=== PATIENT | male | born 1985 | race Caucasian/White ===

== ENCOUNTER 2020-07-02 21:39 | Emergency (ER) | payer OTHER ==
[2020-07-02] MEDS ORDERED: HYDROcodone/APAP 5-325MG 1 EACH TAB PO STA (21:58)
--- NOTE | 2020-07-02 22:29 | XR ---
EXAMINATION TYPE: XR ankle complete LT DATE OF EXAM: 07/02/2020 COMPARISON: NONE HISTORY: Pain and swelling TECHNIQUE: 3 views FINDINGS: There is soft tissue swelling over the lateral malleolus. Ankle mortise is anatomic. I see no fracture nor dislocation. IMPRESSION: Lateral soft tissue swelling. No fracture seen.
--- NOTE | 2020-07-02 22:35 | ED ---
Lower Extremity Injury HPI - General Chief Complaint: Extremity Injury, Lower Stated Complaint: L Ankle Injury Time Seen by Provider: 07/02/20 21:46 Source: patient Mode of arrival: wheelchair Limitations: no limitations - History of Present Illness Initial Comments: 35-year-old male presenting today for chief complaint of left ankle pain. Patient states that he left his house to go back to his car to get a change of clothes when he stepped on a loose piece of sidewalk and this caused him to invert his left ankle. He states he merely noticed pain swelling and felt a pop. Patient denies any injury to the knee had head neck back abdomen or upper extremities. He denies any loss of sensation weakness coolness or pallor of the extremity he states he immediately removed his boot so that it did not dislocate his foot. He denies any lacerations or abrasions. - Related Data Home Medications Medication Instructions Recorded Confirmed No Known Home Medications 10/04/15 10/04/15 Allergies Allergy/AdvReac Type Severity Reaction Status Date / Time chlorhexidine Allergy Unknown Verified 07/02/20 21:45 Review of Systems ROS Statement: Those systems with pertinent positive or pertinent negative responses have been documented in the HPI. ROS Other: All systems not noted in ROS Statement are negative. Past Medical History Past Medical History: No Reported History History of Any Multi-Drug Resistant Organisms: None Reported Past Surgical History: Orthopedic Surgery Past Psychological History: No Psychological Hx Reported Smoking Status: Never smoker Past Alcohol Use History: Occasional Past Drug Use History: None Reported General Exam - General Exam Comments Initial Comments: General: The patient is awake and alert, in no distress Eye: Pupils are equal, round and reactive to light, extra-ocular movements are intact. No nystagmus. There is normal conjunctiva bilaterally. No signs of icterus. Cardiovascular: There is a regular rate and rhythm. No murmur, rub or gallop is appreciated. Respiratory: Lungs are clear to auscultation, respirations are non-labored, breath sounds are equal. No wheezes, stridor, rales, or rhonchi. Musculoskeletal: There is soft tissue swelling of the lateral aspect of the left ankle. He was compression of the distal fibula and tibia there is no proximal tenderness to palpation of the tibia and fibula. Extensor mechanism intact. Refuses to full range at the left ankle secondary to pain. Strength 5/5. No foot drop Sensation intact. Radial and DP pulses equal bilaterally 2+. Neurological: A&O x 3. CN II-XII intact grossly, There are no obvious motor or sensory deficits. Coordination appears grossly intact. Speech is normal. Skin: Skin is warm and dry and no rashes or lesions are noted. Psychiatric: Cooperative, appropriate mood & affect, normal judgment. Limitations: no limitations Course Vital Signs 07/02/20 07/02/20 21:40 22:54 Temperature 98.7 F 98.1 F Pulse Rate 88 80 Respiratory 18 16 Rate Blood Pressure 128/82 122/79 O2 Sat by Pulse 95 96 Oximetry Medical Decision Making - Medical Decision Making 35yo male presenting today for cc oc lior pain. inverted. Neurovascular intact no other noted injuries. No openings in the skin. X-rays negative for acute fracture. Patient placed in an air stirrup to support ankle as I suspect most likely a ligamentous injury. Patient is to follow-up with orthopedic surgery use crutches for comfort rest ice compress and elevate the ankle. I recommended wearing the ankle brace at all times. Return parameters and importance of f/u discussed patient discharged appearing well. Disposition Clinical Impression: Left ankle sprain, Left ankle pain, Left ankle swelling Disposition: HOME SELF-CARE Condition: Good Instructions (If sedation given, give patient instructions): Ankle Sprain (ED) Additional Instructions: Please use medication as discussed. Please follow-up with family doctor in the next 2 days, I recommend for persistent pain orthopedic follow-up as there is risk of high ankle sprain. Please return to emergency room if the symptoms increase or worsen or for any other concerns. Is patient prescribed a controlled substance at d/c from ED?: No Referrals: None,Stated [Primary Care Provider] - 1-2 days Cedric Hi DO [Doctor of Osteopathic Medicine] - 1-2 days Time of Disposition: 22:34
[2020-07-02 22:55] VITALS: BP 122/79; PULSE 80; RESP 16; TEMP 98.1
== END 2020-07-02 22:54 | disposition home or self-care (01) ==
LOC: EC 21:39
DX: S93.402A Sprain of unspecified ligament of left ankle, initial encounter (principal); Z88.3 Allergy status to other anti-infective agents; W22.09XA Striking against other stationary object, initial encounter
CPT/HCPCS: 73610; 99283; 29515; L4350